=== PATIENT | female | born 1965 | race Caucasian/White ===

== ENCOUNTER → 2018-04-07 | Outpatient (CLI) | payer OTHER | LOC: FIMAGING 16:03 | PROVIDERS: ATTEND Orthopaedic Surgery | DX: Z01.818 Encounter for other preprocedural examination (principal); M17.9 Osteoarthritis of knee, unspecified ==

== ENCOUNTER 2018-04-25 06:06 | Observation (INO) | payer OTHER ==
[2018-04-25] MEDS ORDERED: ceFAZolin 2 GM/DEXTROSE 100 ML IV ONE (06:11)
[2018-04-25] MEDS ORDERED: FAMOTIDINE 20 MG TAB PO ONE (06:11)
[2018-04-25] MEDS ORDERED: LR 1,000 ML IV ONE (06:11)
[2018-04-25] MEDS ORDERED: DEXAMETHASONE 4 MG/ML VIAL IVP ONE (06:11)
[2018-04-25] MEDS ORDERED: ACETAMINOPHEN 325 MG TAB PO ONE (06:11)
--- NOTE | 2018-04-25 06:19 | PDHPUP ---
History & Physical Update H&P update statement: This history and physical update is based on an assessment of the patient which was completed after admission or registration (within 24 hours), but prior to the surgery/procedure. H&P update: H&P reviewed & patient examined, no change in patient's condition since H&P completed
[2018-04-25] MEDS ORDERED: TRANEXAMIC ACID 3,000 MG/50 ML BAG IRR ONE (06:52)
[2018-04-25] MEDS ORDERED: VANCOMYCIN 1 GM VIAL ONE (06:54)
[2018-04-25] MEDS ORDERED: MIDAZOLAM 2 MG/2 ML VIAL ONE (06:58)
[2018-04-25] MEDS ORDERED: MIDAZOLAM 2 MG/2 ML VIAL IVP ONE (07:08)
--- NOTE | 2018-04-25 07:10 | PDANEPAE ---
ANE Past Medical History - Cardiovascular History Hx Hypertension: No Hx Arrhythmias: No Hx Chest Pain: No Hx Coronary Artery / Peripheral Vascular Disease: No Hx CHF / Valvular Disease: No Hx Palpitations: No - Pulmonary History Hx COPD: No Hx Asthma/Reactive Airway Disease: No Hx Recent Upper Respiratory Infection: No Hx Oxygen in Use at Home: No Hx Sleep Apnea: Yes Sleep Apnea Screening Result - Last Documented: Negative - Neurologic History Hx Cerebrovascular Accident: No Hx Seizures: No Hx Dementia: No - Endocrine History Hx Diabetes: No Obesity: moderate - Renal History Hx Renal Disorders: No - Liver History Hx Hepatic Disorders: No - Neurological & Psychiatric Hx Hx Neurological and Psychiatric Disorders: Yes Neurological / Psychiatric History Comment: BIPOLA. TREMOR R/T LITHIUM - Cancer History Hx Cancer: No - Congenital Disorder History Hx Congenital Disorders: No - GI History GERD: no Hx Gastrointestinal Disorders: No - Other Health History Other Health History: PROLAPED BLADDER AND UTERUS - Chronic Pain History Chronic Pain: Yes (R hip) - Surgical History Prior Surgeries: MENISCUS REPAIR 2018 ANE Review of Systems Review of Systems: - Exercise capacity METS (RN): 4 METS ANE Patient History - Allergies Allergies/Adverse Reactions: Cephalosporins Allergy (Verified 04/25/18 06:23) Vomiting Penicillins Allergy (Verified 04/25/18 06:23) Rash - Home Medications Home medications: home medication list seen and reviewed Home Medications: Divalproex ER [Depakote ER 500 MG (*)] 1,500 mg PO HS 04/03/18 [Last Taken 04/24 20:00] Lakin Carbonate ER [Lithobid 300 mg (*)] 600 mg PO HS 04/03/18 [Last Taken 10/03 20:00] Loratadine [Claritin 10 mg] 10 mg PO DAILY 04/03/18 [Last Taken 04/24/18] Naproxen Sodium [Aleve 220 MG (*)] 220 mg PO BID PRN 04/03/18 [Last Taken 20:00] Propranolol HCl [Inderal 10mg (*)] 10 mg PO BID 04/03/18 [Last Taken 04/25/18 05 :30] lamoTRIgine [LamICTAL 100 MG (*)] 300 mg PO HS 04/03/18 [Last Taken 04/24/18 20: 00] - NPO status NPO Status: no food or drink >8 hours NPO Since - Liquids (Date): 04/25/18 NPO Since - Liquids (Time): 05:30 NPO Since - Solids (Date): 04/24/18 NPO Since - Solids (Time): 21:00 - Anes Hx Anes Hx: no prior problems - Smoking Hx Smoking Status: Never smoked - Family Anes Hx Family Hx Anesthesia Complications: NONE ANE Labs/Vital Signs - Vital Signs Blood Pressure: 143/93 Heart Rate: 78 Respiratory Rate: 16 O2 Sat (%): 95 Height: 160.02 cm Weight: 81.647 kg ANE Physical Exam - Airway Neck exam: FROM Mallampati Score: Class 2 Mouth exam: normal dental/mouth exam - Pulmonary Pulmonary: no respiratory distress, no rales or rhonchi, clear to auscultation - Cardiovascular Cardiovascular: regular rate and rhythym, no murmur, rub, or gallop - ASA Status ASA Status: II ANE Anesthesia Plan Anesthesia Plan: spinal Regional Anesthesia: adductor canal FNB
[2018-04-25] MEDS ORDERED: BUPIVACAINE 0.25% 30 ML SDV ONE (07:11)
[2018-04-25] MEDS ORDERED: BUPIVACAINE 0.5% 30 ML SDV ONE (07:12)
[2018-04-25] MEDS ORDERED: PROPOFOL 200 MG/20 ML VIAL ONE ×2 (07:13→07:40)
[2018-04-25] MEDS ORDERED: DEXAMETHASONE 4 MG/ML VIAL ONE ×2 (07:13)
[2018-04-25] MEDS ORDERED: TRANEXAMIC ACID 3,000 MG in NS (SYRINGE) 50 ML IRR ONE (07:15)
[2018-04-25] MEDS ORDERED: ROPIVACAINE 0.2% 80 MG, EPINEPHrine 0.2 MG, KETOROLAC TROMETHAMINE 30 MG in SYRINGE 0 ML IU ONE (07:15)
[2018-04-25] MEDS ORDERED: LIDOCAINE 2% 5 ML SDV ONE (07:33)
[2018-04-25] MEDS ORDERED: fentaNYL 100 MCG/2 ML INJ ONE (07:40)
[2018-04-25] MEDS ORDERED: fentaNYL 100 MCG/2 ML INJ IVP PRN (07:50)
[2018-04-25] MEDS ORDERED: PROMETHAZINE HCL 25 MG/ML INJ IVP PRN ×2 (07:50→08:43)
[2018-04-25] MEDS ORDERED: NALOXONE HCL 0.4 MG/ML INJ IVP PRN (07:50)
[2018-04-25] MEDS ORDERED: DIAZEPAM 5 MG/ML 1 ML SYR IVP PRN (07:50)
[2018-04-25] MEDS ORDERED: HYDROCODONE/APAP 5/325 TAB PO PRN (07:50)
[2018-04-25] MEDS ORDERED: LR 500 ML IV PRN (07:50)
[2018-04-25] MEDS ORDERED: ACETAMINOPHEN 500 MG TAB PO PRN (07:50)
[2018-04-25] MEDS ORDERED: LACTULOSE 20 GM/30 ML UDCUP PO PRN (08:43)
[2018-04-25] MEDS ORDERED: ONDANSETRON DISINTEGRATING 4 MG TAB PO PRN (08:43)
[2018-04-25] MEDS ORDERED: ONDANSETRON 4 MG/2 ML VIAL IVP PRN (08:43)
[2018-04-25] MEDS ORDERED: BISACODYL 10 MG SUPP PR PRN (08:43)
[2018-04-25] MEDS ORDERED: TEMAZEPAM 15 MG CAP PO PRN (08:43)
[2018-04-25] MEDS ORDERED: PROMETHAZINE HCL 25 MG SUPPR PR PRN (08:43)
[2018-04-25] MEDS ORDERED: MAGNESIUM HYDROXIDE 30 ML UDCUP PO PRN (08:43)
[2018-04-25] MEDS ORDERED: DIPHENOXYLATE/ATROPINE LOMOTIL 1 TAB PO PRN (08:43)
[2018-04-25] MEDS ORDERED: METOCLOPRAMIDE 10 MG/2 ML VIAL IVP PRN (08:43)
[2018-04-25] MEDS ORDERED: POLYETHYLENE GLYCOL 3350 17 GM PKT PO PRN (08:43)
[2018-04-25] MEDS ORDERED: diphenhydrAMINE 25 MG CAP PO PRN (08:43)
--- NOTE | 2018-04-25 08:43 | POSTOPPROG ---
Post Op Note Date of Operation: 04/25/18 Surgeon: James Doe Business Office Coordinator: lorena doe PA-C and katina Fisher PA-C Anesthesiologist: dr. bautista Anesthesia: Spinal, Other (Specify) (adductor canal block) Pre-op Diagnosis: right knee OA Post-op Diagnosis: same Indication: right knee pain Procedure: R med MPL Findings: severe medial knee OA Inf/Abcess present in the surg proc area at time of surgery?: No EBL: 50-100
[2018-04-25] MEDS ORDERED: LR 1,000 ML IV SCH (09:00)
--- NOTE | 2018-04-25 09:02 | POSTANESTH ---
Post Anesthetic Evaluation Cardiovascular Status: Normal, Stable, Similar to Pre-Op Cond Respiratory Status: Normal, Stable, Similar to Pre-op Cond. Level of Consciousness/Mental Status: Can Participate in Eval, Alert and Oriented Pain Control: Adequate, Prn Tx Ordered Nausea/Vomiting Control: Adequate, Prn Tx Ordered Complications Possibly Related to Anesthesia: None Noted (Rt adductor canal nerve block performed in PACU (20 ml 0.375% bupiv) without complications.)
[2018-04-25] MEDS ORDERED: ONDANSETRON 4 MG/2 ML VIAL ONE (11:19)
[2018-04-25] MEDS: ONDANSETRON 4 MG/2 ML VIAL IVP PRN ×2 (11:20→11:37)
[2018-04-25] MEDS: CETIRIZINE 10 MG TAB PO SCH (13:08)
[2018-04-25] MEDS: SENNOSIDES/DOCUSATE SODIUM TAB PO SCH ×2 (13:09→20:38)
[2018-04-25] MEDS: ACETAMINOPHEN 325 MG TAB PO SCH ×3 (13:22→23:19)
[2018-04-25] MEDS: oxyCODONE IR 5 MG TAB PO PRN ×4 (13:22→22:26)
[2018-04-25] MEDS: ceFAZolin 2 GM/DEXTROSE 100 ML IV SCH ×2 (14:20→22:26)
[2018-04-25] MEDS: CYCLOBENZAPRINE 10 MG TAB PO PRN ×2 (14:21→22:26)
[2018-04-25] MEDS: ASPIRIN 81 MG CHEWABLE TAB PO SCH (20:37)
[2018-04-25] MEDS: PROPRANOLOL HCL 10 MG TAB PO SCH (20:37)
[2018-04-25] MEDS: FAMOTIDINE 20 MG TAB PO SCH (20:38)
[2018-04-25] MEDS ORDERED: DIVALPROEX ER 500 MG TAB PO SCH (21:00)
[2018-04-25] MEDS ORDERED: lamoTRIgine 100 MG TAB PO SCH (21:00)
[2018-04-25] MEDS ORDERED: LITHIUM CARBONATE ER 300 MG TAB PO SCH (21:00)
[2018-04-26] MEDS: oxyCODONE IR 5 MG TAB PO PRN ×2 (04:52→09:53)
[2018-04-26] MEDS: ACETAMINOPHEN 325 MG TAB PO SCH ×2 (06:33→12:32)
[2018-04-26] MEDS: ASPIRIN 81 MG CHEWABLE TAB PO SCH (09:47)
[2018-04-26] MEDS: CETIRIZINE 10 MG TAB PO SCH (09:47)
[2018-04-26] MEDS: FAMOTIDINE 20 MG TAB PO SCH (09:48)
[2018-04-26] MEDS: PROPRANOLOL HCL 10 MG TAB PO SCH (09:48)
[2018-04-26] MEDS: SENNOSIDES/DOCUSATE SODIUM TAB PO SCH (09:49)
--- NOTE | 2018-04-26 10:12 | SOAPPROG ---
SOAP Progress Note Assessment/Plan: Assessment: Patient is doing well POD 1 s/p Pain management: pain is well controlled on oral pain meds. VTE ppx: recommend 81 mg aspirin morning and evening for 4 weeks, cont JESSE and SCDs Anemia: level is expected initially postop. Asymptomatic. Continue to monitor Initially required straight cath but has since had void without catheter D/c planning:patient has done much better than anticipated. Patient is stable, BP stable, pain well controlled and patient is eager for discharge to home. May d/c to home today pending release from PT Plan: 04/26/18 10:10 Subjective: No nausea, vomiting, shortness of breath, chest pain Objective: Vital Signs Temp Pulse Resp BP Pulse Ox 37.0 C 80 15 104/61 97 04/26/18 07:53 04/26/18 07:53 04/26/18 07:53 04/26/18 07:53 04/26/18 07:53 Laboratory Results 04/26/18 04:46 04/25/18 04/26/18 04/27/18 05:59 05:59 05:59 Intake Total 2760 Output Total 4150 Balance -1390 RLE: incision dressing clean and dry, positive PF/DF, NVI ICD10 Worksheet Patient Problems: Problems Problem Status Onset Primary osteoarthritis of right knee Acute
--- NOTE | 2018-04-26 11:20 | ASMTLACE ---
TERRENCE Length of stay for Answers: 1 day current admission Acuity / Level of Answers: No Care: Did the patient have an inpatient admission? Comorbidities - select Answers: Opioid dependence all that apply / Chronic pain # of Emergency department Answers: 0 visits in the last 6 months Social determinants Answers: Mental health diagnosis (anxiety, depression, pers onality disorders, etc.) Score: 8 Date Signed: 04/26/2018 11:20 AM Electronically Signed By:COLT Gross
[2018-04-26 11:24] VITALS: BP 140/73
--- NOTE | 2018-04-26 14:24 | ASMTDCNOTE ---
Case Management Discharge Discharge Order Complete? Answers: Yes Patient to Obtain Answers: via Family Medications Transportation Arranged Answers: Family/Friends Discharge Comments Notes: Pt is s/p R knee resurfacing. PT has cleared. Pt is discharging home today with her and no CM needs. Date Signed: 04/26/2018 02:24 PM Electronically Signed By:COLT Gross
--- NOTE | 2018-04-26 16:15 | GOP ---
[f rep st] OPERATIVE REPORT DATE OF OPERATION: 04/25/2018 SURGEON: Tara Rojas MD SOCIAL SERVICE COORDINATOR: TRES Quintero P.A.-c ANESTHESIA: Spinal. PREOPERATIVE DIAGNOSIS: Right knee osteoarthritis. POSTOPERATIVE DIAGNOSIS: Right knee osteoarthritis. PROCEDURE PERFORMED: Right total knee arthroplasty with computer navigation, robotic assist. FINDINGS: ESTIMATED BLOOD LOSS: 30 cc. INDICATIONS: This is a 53-year-old female with progressive pain of the right knee unresponsive to co nservative care. Risks and benefits of surgical intervention were explained in detail. DESCRIPTION OF PROCEDURE: The patient was brought to the operating room and placed on the table in s upine position. Spinal anesthesia was induced without difficulty. A pneumatic tourniquet was applied about the right proximal thigh and the leg was prepped and draped in sterile fashion. Attention was t urned first to the distal aspect of the right femur. At 3 cm proximal to the lateral rise of the femu r, 2 percutaneous half pins were placed for fixation of the femoral array. In a similar fashion, 2 pi ns were placed anterolateral on the tibia for fixation of the tibial array. External land marking and registration of the hip center was performed without difficulty. After exsanguination by elevation, the tourniquet was inflated to 250 mmHg. Incision was made from the tibial tuberosity to the superior pole of the patella. Dissection was wallace ied out through the subcutaneous tissue to the deep fascia using Bovie electrocautery for hemostasis. Medial parapatellar arthrotomy was carried out to the superior pole of the patella. The medial colla teral ligament was elevated and the infrapatellar fat pad was resected. Internal femoral and tibial r egistration was carried out without difficulty and the femoral and tibial checkpoints were placed and verified for accuracy. Attention was turned to the femur. The foot print for the size 2 femoral component was cut with the 6 mm bur using the [employer] robotic system and verified for accuracy against the CT based plan. The hole wa s cut for the femoral post. In a similar fashion, the 6 mm bur was used to cut the foot print for the size 2 tibial component using the [employer] system and verified for accuracy against the CT based plan. Attention was turned to the posterior aspect of the knee and remnants of the medial meniscus were exc ised. The posterior capsule was injected with ropivacaine, epinephrine and Toradol. Trial reduction w as carried out and there was excellent range of motion, alignment and stability using the size 2 femo ral component, the size 2 tibial component, and 2 x 8 mm polyethylene. All trials were then removed. The joint was thoroughly irrigated and carefully dried. One package of cement and 1 gram of vancomycin were mixed in the vacuum mixer and placed on the fixation surfaces of all components. The components were implanted and all excess cement was thoroughly removed. Implant placement was verified against the CT view plan and found to be excellent. The tourniquet was deflated and all bleeders were coagulated. The wound was thoroughly irrigated and closed using interrupted sutures of 2-0 Vicryl for the joint capsule. The subcu was closed with 3-0 V icryl and the skin with 4-0 Monocryl. Dermabond and Steri-Strips were applied, followed by a compress kavya dressing. The patient was then moved from the operating room to the recovery room in good conditi on, having tolerated the procedure well. CASE CLASSIFICATION: Clean. /[id number]/MODL
--- NOTE | 2018-04-26 19:06 | GDS ---
[f rep st] DISCHARGE SUMMARY ADMISSION DIAGNOSIS: Right knee osteoarthritis. DISCHARGE DIAGNOSIS: Right knee osteoarthritis. PROCEDURE: Right total knee arthroplasty, robot-assisted. VTE PROPHYLAXIS: Recommend aspirin 81 mg twice daily for 4 weeks. BRIEF DESCRIPTION OF HOSPITAL STAY: Patient was admitted for an elective joint arthroplasty. The pat ient tolerated the procedure well and has passed physical therapy. The patient was given appropriate antibiotic prophylaxis and venous thromboembolism prophylaxis. The patient's pain was well controlled on oral pain medication, patient was holding down food, and had urinated. Decision was made to disch arge the patient. The patient was given post-operative prescriptions pre-operatively. PLAN: Followup scheduled with Dr. Rojas's office on May 12 at 12:30 /[id number]/MODL
== END 2018-04-26 14:34 | disposition home or self-care (01) ==
LOC: F3N 06:06
PROVIDERS: ADMIT Orthopaedic Surgery; ATTEND Orthopaedic Surgery
PROC: 0SRC0JZ Replacement of Right Knee Joint with Synthetic Substitute, Open Approach (ICD-10-PCS; principal; 2018-04-25 07:15)
DX: M17.11 Unilateral primary osteoarthritis, right knee (principal); G47.30 Sleep apnea, unspecified; F31.9 Bipolar disorder, unspecified
CPT/HCPCS: 97110-GP; 97116-GP; 97161-GP; C1713; G0378; J0171; J0690; J1100; J1885; J2250; J2405; J2704; J2795; J3010; J3370